=== PATIENT | female | born 1990 | race Hispanic/Latino ===

== ENCOUNTER 2020-06-05 10:27 | Inpatient (IN) | payer BC, OTHER ==
[2020-06-05] MEDS ORDERED: Iopamidol-370 76% 500 ML 1 ML ONE (10:36)
[2020-06-05] MEDS ORDERED: Dexamethasone 10 MG/ML VIAL ONE (11:05)
--- NOTE | 2020-06-05 11:38 | RAD ---
EXAM: Single view of the chest HISTORY: Shortness of breath COMPARISON: None FINDINGS: Single view of the chest shows a normal sized cardiomediastinal silhouette. Multifocal opac ities are seen peripherally in the lung bases. The bones are unremarkable IMPRESSION: Multifocal infiltrates.
[2020-06-05 11:39] LABS: Hemoglobin 12.1 g/dL (12.0-16.0); Mean Corpuscular HGB CONC 33.1 g/dL (32.0-36.0); Mean Corpuscular Hemoglobin 29.1 pg (27.0-31.0); Platelet Count 383 thou/uL (130-400); RBC Distribution Width 12.5 % (11.5-14.5); Red Blood Cell (RBC) Count 4.14 mill/uL (4.20-5.40); White Blood Cell (WBC) Count 11.8 thou/uL (4.8-10.8)
[2020-06-05 11:40] LABS: BHCG - Serum Negative (NEGATIVE); Pregs Control Bar Appear? YES (CONTROL BAR)
[2020-06-05 11:41] LABS: Pregs Control Background? CLEAR/WHITE (CLR/WHITE)
[2020-06-05] MEDS ORDERED: Albuterol 200 PUFF (6.7GM INHALER) ONE (11:42)
[2020-06-05 11:53] LABS: Band 7 % (5-11); Eosinophils 1 % (0-10); Lymphocytes 16 % (21-51); MDiff Complete? YES; Monocytes 2 % (0-10); Myelocyte 1 % (0-0); Neutrophil 72 % (42-75); RBC Morphology Normal; Reactive Lymphocytes 1 % (0-10)
[2020-06-05 11:59] LABS: ALT (SGPT) 56 U/L (8-55); Albumin 3.5 g/dL (3.5-5.0); Alkaline Phosphatase 107 U/L (40-110); BUN (Urea Nitrogen) 19 mg/dL (7.0-18.7); Bilirubin, Total 0.5 mg/dL (0.2-1.2); Calc. Creatinine Clearance 0 mL/min (70-130); Calcium 8.6 mg/dL (7.8-10.44); Carbon Dioxide 24 mmol/L (22-29); Chloride 100 mmol/L (98-107); Estimated GFR-MDRD 73; Glucose 423 mg/dL (70-105); Sodium 132 mmol/L (136-145)
[2020-06-05 12:31] LABS: AST (SGOT) 56 U/L (5-34); Anion Gap 13 mmol/L (10-20); Globulin 3.2 g/dL (2.4-3.5); Potassium 4.8 mmol/L (3.5-5.1); Protein, Total 6.7 g/dL (6.0-8.3)
--- NOTE | 2020-06-05 13:04 | CT ---
CT arteriogram chest with IV contrast and 3-D imaging HISTORY: Cough. Dyspnea. FINDINGS: There is good contrast opacification of the pulmonary arteries and thoracic aorta with bovi ne origin of the great vessels at the aortic arch. Moderate patchy ill-defined areas of peripheral groundglass parenchymal infiltrates are present throu ghout each lung, most pronounced at the dependent portion of each lung and in the lower lobes. No pleural fluid or pneumothorax. No evidence of mediastinal adenopathy. Within the partially visualized upper abdomen, the liver is diffusely hypodense. IMPRESSION : No CT evidence of pulmonary embolus. CT findings of moderate severity COVID pneumonitis. Hepato-steatosis.
[2020-06-05] MEDS ORDERED: Cefepime 2 GM VIAL ONE ×2 (13:46→13:49)
[2020-06-05] MEDS ORDERED: Calcium Carbonate 500 MG ChewTAB PO PRN (13:59)
[2020-06-05] MEDS ORDERED: Ondansetron ODT 4 MG TAB PO PRN (13:59)
[2020-06-05] MEDS ORDERED: Bisacodyl 10 MG SUPP PR PRN (13:59)
[2020-06-05] MEDS ORDERED: Senokot S 8.6-50 MG TAB PO PRN (13:59)
[2020-06-05] MEDS ORDERED: Dextrose 5% in Water 1,000 ML IV PRN (13:59)
[2020-06-05] MEDS ORDERED: Acetaminophen 325 MG TAB PO PRN (13:59)
[2020-06-05] MEDS ORDERED: Dextrose 50% Abboject 50 ML SYRINGE SLOW IVP PRN (13:59)
[2020-06-05] MEDS ORDERED: Ondansetron PF 4 MG/2 ML Vial IVP PRN (13:59)
--- NOTE | 2020-06-05 14:19 | PDOC.HHP ---
Hospitalist HPI - History of Present Illness SOB History of Present Illness: Patient is a 29-year-old female with no past medical history presented to the emergency room with above complaints. Over the last 1 week patient developed cough along with fever generalized weakness fatigue malaise and loss of taste. The cough was productive of thick whitish mucus. Her symptoms progressively got worse. She had a COVID testing done on 30 May at the [facility] that was negative. Her symptoms however continued to worsen. Over the last 3 to 4 days she developed chills along with shortness of breath and loss of appetite. She denies any sick contacts. No recent immobilization travel chest pain palpitations syncope orthopnea leg swelling reported. In the emergency room she was found to be hypoxic with O2 saturation of 86% on room air. Her O2 saturation improved with [address] chest was consistent with moderate to severe COVID pneumonia. Pulmonary embolism was ruled out. She received empiric antibiotics in the emergency room along with dexamethasone. ED Course: VITAL SIGNS WedJun 05, 2020 10:29 OLAMIDE Gao Dannette Pulse: 92, O2 sat: 86 on (Room Air), Time: 06/05/2020 10:29. VITAL SIGNS WedJun 05, 2020 10:36 OLAMIDE Zimmerman Jenifer BP: 130/88, MAP: 102, Pulse: 81, Resp: 26, O2 sat: 87 on (Room Air), Time: 2019 10:36. VITAL SIGNS WedJun 05, 2020 10:37 OLAMIDE Zimmerman Jenifer Resp: 23, O2 sat: 93 on (2L Oxygen), Time: 06/05/2020 10:37. VITAL SIGNS WedJun 05, 2020 10:40 OLAMIDE Zimmerman Jenifer O2 sat: 94 on (4L Oxygen), Time: 06/05/2020 10:40. MEDICATION ADMINISTRATION SUMMARY Drug Name Dose Ordered Route Status Time cefepime injection 2 g IV Piggy Back Ordered 13:39 06/05/2020 *Proventil HFA 2 puff(s) Inhaler-MDI Given 11:50 06/05/2020 sodium chloride 0.9 % intravenous 1 L IV Fluid Infusion Given 11:23 06/05/2020 dexamethasone 10 mg IV Push Given 11:23 06/05/2020 Hospitalist ROS - Review of Systems Cardiovascular: denies: chest pain, palpitations, orthopnea, paroxysmal noc. dyspnea, edema, light headedness, other Gastrointestinal: denies: nausea, vomiting, abdominal pain, diarrhea, constipation, melena, hematochezia, other All other systems reviewed; all pertinent +/- noted in HPI/Subj Hospitalist History - Past Medical History Other Medical History: Reviewed and none - Past Surgical History Other Surgical History: Reviewed and none - Family History Family History: reports: diabetes mellitus, hypertension - Social History Smoking Status: Never smoker Alcohol: reports: None Drugs: reports: none Living Situation: With Family Occupation: Homemaker Activity level: independent ambulation - Exam General Appearance: ill appearing Eye: PERRL, anicteric sclera ENT: normocephalic atraumatic, no oropharyngeal lesions Neck: supple, symmetric, no JVD, no thyromegaly Heart: RRR, no gallops, no rubs, normal peripheral pulses Respiratory: no wheezes, normal chest expansion, normal percussion, rales, rhonchi, tachypneic Gastrointestinal: soft, non-distended, normal bowel sounds, no guarding, no rigidity Extremities: no cyanosis, no clubbing, no edema Skin: normal turgor Neurological: no weakness, no focal deficits Musculoskeletal: normal tone, normal strength Psychiatric: normal affect, A&O x 3 Hospitalist Results - Labs Result Diagrams: 06/05/20 11:15 06/05/20 11:15 Lab results: WBC 11.8 thou/uL (4.8-10.8) H 06/05/20 11:15 Hgb 12.1 g/dL (12.0-16.0) 06/05/20 11:15 Hct 36.5 % (36.0-47.0) 06/05/20 11:15 MCV 88.0 fL (78.0-98.0) 06/05/20 11:15 Plt Count 383 thou/uL (130-400) 06/05/20 11:15 Band Neuts % (Manual) 7 % (5-11) 06/05/20 11:15 Sodium 132 mmol/L (136-145) L 06/05/20 11:15 Potassium 4.8 mmol/L (3.5-5.1) 06/05/20 11:15 Chloride 100 mmol/L (98-107) 06/05/20 11:15 Carbon Dioxide 24 mmol/L (22-29) 06/05/20 11:15 BUN 19 mg/dL (7.0-18.7) H 06/05/20 11:15 Creatinine 0.90 mg/dL (0.6-1.1) 06/05/20 11:15 Glucose 423 mg/dL (70-105) H 06/05/20 11:15 Calcium 8.6 mg/dL (7.8-10.44) 06/05/20 11:15 Total Bilirubin 0.5 mg/dL (0.2-1.2) 06/05/20 11:15 AST 56 U/L (5-34) H 06/05/20 11:15 ALT 56 U/L (8-55) H 06/05/20 11:15 Alkaline Phosphatase 107 U/L (40-110) 06/05/20 11:15 Serum Total Protein 6.7 g/dL (6.0-8.3) 06/05/20 11:15 Albumin 3.5 g/dL (3.5-5.0) 06/05/20 11:15 Laboratory Tests 06/05/20 06/05/20 06/05/20 11:15 11:15 11:15 Lymphocytes % (Manual) 16 L AST 56 H ALT 56 H Serum , Qual Negative Additional comment: Laboratory Tests 06/05/20 11:11 C-Reactive Protein 11.72 H - EKG Interpretation EKG: Sinus rhythm on telemetry monitoring - Radiology Interpretation CT scan - chest Status: image reviewed by me Additional Comment: RADIOLOGY CTA Angio Chest W WO Con Observe DT: WedJun 05, 2020 10:57, CTATHX CT arteriogram chest with IV contrast and 3-D imaging HISTORY: Cough. Dyspnea. FINDINGS: There is good contrast opacification of the pulmonary arteries and thoracic aorta with bovi ne origin of the great vessels at the aortic arch. Moderate patchy ill-defined areas of peripheral groundglass parenchymal infiltrates are present throu ghout each lung, most pronounced at the dependent portion of each lung and in the lower lobes. No pleural fluid or pneumothorax. No evidence of mediastinal adenopathy. Within the partially visualized upper abdomen, the liver is diffusely hypodense. IMPRESSION : No CT evidence of pulmonary embolus. CT findings of moderate severity COVID pneumonitis. Hepato-steatosis. Chest x-ray Status: image reviewed by me Additional Comment: XR Chest 1 View Portable Observe DT: WedJun 05, 2020 10:54, CXRP EXAM: Single view of the chest HISTORY: Shortness of breath COMPARISON: None FINDINGS: Single view of the chest shows a normal sized cardiomediastinal silhouette. Multifocal opac ities are seen peripherally in the lung bases. The bones are unremarkable IMPRESSION: Multifocal infiltrates. Hospitalist H&P A/P - Plan Plan: COVID-19 positive test with Acute Bilateral Pneumonia Acute hypoxic respiratory failure Sepsis due to COVID pneumonia New onset diabetes mellitus type 2 Obesity BMI 34.2 Hepato-steatosis Plan: Admit to COVID unit Check inflammatory markers Vital signs every 4 hours Continue IV dexamethasone Check A1c Isolation - droplet Hold IV fluids Start Remdesivir per protocolI discussed with infectious disease Dr. Vásquez. Consent obtained from the patient. Patient understands that this medicine is approved by FDA under [place] Monitor blood sugars Insulin sliding scale Consult dietitian for diabetic education Add low-dose of glipizide Start metformin [address] Oxygen supplementation Will add albuterol inhalers Add vitamin C and zinc DVT and GI prophylaxis Patient understands the above plan of care Will require 5 to 6 days for stabilization.
[2020-06-05] MEDS ORDERED: Enoxaparin Sodium 40 MG/0.4 ML SYRINGE ONE ×2 (14:26→14:27)
[2020-06-05] MEDS ORDERED: cloNIDine 0.1 MG TAB PO PRN (14:32)
[2020-06-05 14:44] LABS: Hemoglobin A1c 8.5 % (4.0-6.0)
[2020-06-05 15:02] LABS: INR-International Normal Ratio 1.1; PTT 24.7 sec (22.9-36.1)
[2020-06-05 15:22] LABS: SARS-CoV-2 NAA Rapid Test DETECTED (NotDetected)
[2020-06-05] MEDS ORDERED: Acetaminophen 325 MG TAB ONE (16:05)
[2020-06-05] MEDS ORDERED: REMDESIVIR (EUA) 200 MG in Sodium Chloride 0.9% 250 ML 210 ML IV SCH ×2 (17:00→20:45)
[2020-06-05] MEDS: Albuterol 200 PUFF (6.7GM INHALER) INH SCH ×3 (18:10→23:56)
[2020-06-05 18:17] VITALS: BMI 34.2
[2020-06-05] MEDS: glipiZIDE 5 MG TAB PO SCH (18:37)
[2020-06-05] MEDS: Zinc Sulfate 220 MG CAP PO SCH (21:38)
[2020-06-05] MEDS: Famotidine 20 MG TAB PO SCH (21:38)
[2020-06-05] MEDS: Enoxaparin Sodium 40 MG/0.4 ML SYRINGE SC SCH (21:38)
[2020-06-05] MEDS: Insulin Regular 300 UNITS/3 ML VIAL SC PRN (21:58)
[2020-06-06] MEDS: Albuterol 200 PUFF (6.7GM INHALER) INH SCH ×6 (04:06→23:31)
[2020-06-06 05:25] LABS: ALT (SGPT) 51 U/L (8-55); AST (SGOT) 38 U/L (5-34); Albumin 3.6 g/dL (3.5-5.0); Alkaline Phosphatase 99 U/L (40-110); Anion Gap 14 mmol/L (10-20); BUN (Urea Nitrogen) 17 mg/dL (7.0-18.7); Bilirubin, Total 0.4 mg/dL (0.2-1.2); Calc. Creatinine Clearance 134 mL/min (70-130); Calcium 8.5 mg/dL (7.8-10.44); Carbon Dioxide 23 mmol/L (22-29); Chloride 103 mmol/L (98-107); Estimated GFR-MDRD 85; Globulin 3.3 g/dL (2.4-3.5); Glucose 318 mg/dL (70-105); Protein, Total 6.9 g/dL (6.0-8.3); Sodium 136 mmol/L (136-145)
[2020-06-06 05:37] LABS: Hemoglobin 10.8 g/dL (12.0-16.0); Mean Corpuscular HGB CONC 31.4 g/dL (32.0-36.0); Mean Corpuscular Hemoglobin 27.1 pg (27.0-31.0); Mean Corpuscular Volume 86.2 fL (78.0-98.0); Mean Platelet Volume 8.3 fL (7.4-10.4); Platelet Count 428 thou/uL (130-400); RBC Distribution Width 12.6 % (11.5-14.5); Red Blood Cell (RBC) Count 3.99 mill/uL (4.20-5.40); White Blood Cell (WBC) Count 9.4 thou/uL (4.8-10.8)
[2020-06-06 05:38] LABS: Band 7 % (5-11); Lymphocytes 21 % (21-51); MDiff Complete? YES; Monocytes 4 % (0-10); Neutrophil 68 % (42-75); Platelet Morphology Comment Appears Increased
[2020-06-06] MEDS: Insulin Regular 300 UNITS/3 ML VIAL SC PRN ×4 (05:38→20:35)
[2020-06-06] MEDS: glipiZIDE 5 MG TAB PO SCH ×2 (08:12→16:42)
[2020-06-06] MEDS: Ascorbic Acid 500 mg Chewable Tablet PO SCH (08:12)
[2020-06-06] MEDS: Dexamethasone 4 mg/ml Vial SLOW IVP SCH (08:13)
[2020-06-06] MEDS: Enoxaparin Sodium 40 MG/0.4 ML SYRINGE SC SCH ×2 (08:13→20:18)
[2020-06-06] MEDS: Famotidine 20 MG TAB PO SCH ×2 (08:13→20:18)
[2020-06-06] MEDS ORDERED: Cepastat Lozenges 1 LOZ PO PRN (08:43)
[2020-06-06] MEDS ORDERED: Diabetic Tussin 200 MG/10 ML UDCUP PO PRN (08:43)
[2020-06-06] MEDS: Insulin Glargine 15 UNITS in Pre-Filled Syringe 1 EACH SC SCH ×2 (10:08→20:19)
[2020-06-06] MEDS: guaiFENesin ER 600 MG TAB PO SCH ×2 (10:08→20:18)
[2020-06-06] MEDS: REMDESIVIR (EUA) 100 MG in Sodium Chloride 0.9% 250 ML 230 ML IV SCH (16:43)
--- NOTE | 2020-06-06 17:55 | PDOC.HOSPP ---
- Subjective Encounter Date: 06/06/20 Encounter Time: 16:45 Subjective: Patient seen and examined for sepsis due to COVID-19. Requiring O2. Also has some cough productive of thick whitish phlegm. Also complaining of menorrhagia for 2 months. Was scheduled to see CLERICAL CLERK as outpatienthowever got admitted to the hospital. - Objective Vital Signs & Weight: Vital Signs (12 hours) Temp Pulse Resp BP Pulse Ox 06/06/20 17:10 99.2 F 63 22 H 115/67 100 06/06/20 12:10 98.3 F 75 20 117/69 94 L 06/06/20 08:00 98.3 F 85 24 H 113/66 98 Weight Weight 181 lb 3 oz I&O: 06/05/20 06/06/20 06/07/20 06:59 06:59 06:59 Intake Total 300 480 Output Total 450 800 Balance -150 -320 Result Diagrams: 06/07/20 05:29 06/07/20 05:29 Additional Labs: Accuchecks 06/06/20 06/06/20 06/05/20 11:48 05:40 21:56 POC Glucose 338 H 301 H 358 H EKG Reviewed by me: Yes (Sinus rhythm) Hospitalist ROS - Review of Systems Respiratory: denies: cough, dry, shortness of breath, hemoptysis, SOB with excertion, pleuritic pain, sputum, wheezing, other Cardiovascular: denies: chest pain, palpitations, orthopnea, paroxysmal noc. dyspnea, edema, light headedness, other - Medication Medications: Active Medications Generic Name Dose Route Start Last Admin Trade Name Kalebq PRN Reason Stop Dose Admin Albuterol Sulfate 2 puff 06/05/20 14:30 06/06/20 17:03 Proventil Hfa INH 2 puff [id number] COURTNEY Administration Ascorbic Acid 1,000 mg 06/06/20 09:00 06/06/20 08:12 Vitamin C PO 1,000 mg DAILY COURTNEY Administration Dexamethasone 6 mg 06/06/20 09:00 06/06/20 08:13 Decadron SLOW IVP 6 mg DAILY COURTNEY Administration Enoxaparin Sodium 40 mg 06/05/20 21:00 06/06/20 08:13 Lovenox SC 40 mg 0900,2100 COURTNEY Administration Famotidine 20 mg 06/05/20 21:00 06/06/20 08:13 Pepcid PO 20 mg BID COURTNEY Administration Glipizide 5 mg 06/05/20 16:30 06/06/20 16:42 Glucotrol PO 5 mg BID-AC COURTNEY Administration Guaifenesin 600 mg 06/06/20 09:00 06/06/20 10:08 Mucinex PO 600 mg Q12HR COURTNEY Administration REMDESIVIR (EUA) 100 mg/ 230 mls @ 230 mls/hr 06/06/20 17:00 06/06/20 16:43 Sodium Chloride IV 06/09/20 17:59 230 mls 1700 OCURTNEY Administration Insulin Glargine 15 units/ 0.15 mls @ 0 mls/hr 06/06/20 09:00 06/06/20 10:08 Miscellaneous Medication SC 0.15 mls QAM COURTNEY Administration Insulin Human Regular 0 units 06/05/20 13:59 06/06/20 16:46 Humulin R SC 10 unit .MODERATE SLIDING SC PRN Administration Moderate Correctional Scale Insulin Human Regular 0 units 06/05/20 13:59 06/05/20 21:58 Humulin R SC 5 unit .BEDTIME SLIDING SC PRN Administration Bedtime Correctional Scale Sodium Chloride 10 ml 06/05/20 13:59 06/06/20 16:43 Flush - Normal Saline IVF 10 ml PRN PRN Administration Saline Flush Zinc Sulfate 220 mg 06/05/20 21:00 06/05/20 21:38 Zinc Sulfate PO 220 mg HS COURTNEY Administration - Exam General Appearance: ill appearing Heart: RRR, no gallops Respiratory: no wheezes, no ronchi Gastrointestinal: soft, non-distended Hosp A/P - Plan DVT proph w/lovenox, DVT proph w/SCDs COVID-19 positive test with Acute Bilateral Pneumonia Acute hypoxic respiratory failure Sepsis due to COVID pneumonia New onset diabetes mellitus type 2 Obesity BMI 34.2 Hepato-steatosis Menorrhagia Plan: 06/06 Continue IV dexamethasone with Remdesivir Continue O2 supplementation Add Lantus due to uncontrolled blood sugar Consult CLERICAL CLERK per patient request due to persistent menorrhagia for last 2 months. test was negative Daily labs with inflammatory markers monitoring every 48 hours. 06/05 Admit to COVID unit Check inflammatory markers Vital signs every 4 hours Continue IV dexamethasone Check A1c Isolation - droplet Hold IV fluids Start Remdesivir per protocolI discussed with infectious disease Dr. Vásquez. Consent obtained from the patient. Patient understands that this medicine is approved by FDA under [place] Monitor blood sugars Insulin sliding scale Consult dietitian for diabetic education Add low-dose of glipizide Start metformin [address] Oxygen supplementation Will add albuterol inhalers Add vitamin C and zinc DVT and GI prophylaxis Patient understands the above plan of care Will require 5 to 6 days for stabilization.
[2020-06-06] MEDS: Zinc Sulfate 220 MG CAP PO SCH (20:18)
[2020-06-07] MEDS: Albuterol 200 PUFF (6.7GM INHALER) INH SCH ×6 (03:22→22:00)
[2020-06-07 05:41] LABS: #Basophils 0.1 thou/uL (0.0-0.2); #Eosinphils 0.1 thou/uL (0.0-0.7); #Monocytes 0.7 thou/uL (0.11-0.59); #Neutrophils 5.6 thou/uL (1.40-6.50); %Basophils 1.4 % (0.0-1.0); %Eosinophils 0.9 % (0.0-10.0); %Monocytes 7.8 % (0.0-10.0); Hemoglobin 11.1 g/dL (12.0-16.0); Mean Corpuscular HGB CONC 32.1 g/dL (32.0-36.0); Mean Corpuscular Hemoglobin 28.1 pg (27.0-31.0); Mean Corpuscular Volume 87.7 fL (78.0-98.0); Platelet Count 431 thou/uL (130-400); RBC Distribution Width 12.8 % (11.5-14.5); Red Blood Cell (RBC) Count 3.96 mill/uL (4.20-5.40); White Blood Cell (WBC) Count 9.6 thou/uL (4.8-10.8)
[2020-06-07 06:02] LABS: ALT (SGPT) 63 U/L (8-55); AST (SGOT) 57 U/L (5-34); Albumin 3.5 g/dL (3.5-5.0); Alkaline Phosphatase 95 U/L (40-110); Anion Gap 12 mmol/L (10-20); BUN (Urea Nitrogen) 19 mg/dL (7.0-18.7); Bilirubin, Total 0.4 mg/dL (0.2-1.2); CRP (Inflammatory) 1.94 mg/dL (= or < 0.5); Calc. Creatinine Clearance 137 mL/min (70-130); Calcium 8.5 mg/dL (7.8-10.44); Carbon Dioxide 25 mmol/L (22-29); Chloride 105 mmol/L (98-107); Estimated GFR-MDRD 87; Globulin 3.2 g/dL (2.4-3.5); Glucose 148 mg/dL (70-105); Potassium 3.5 mmol/L (3.5-5.1); Protein, Total 6.7 g/dL (6.0-8.3); Sodium 138 mmol/L (136-145)
[2020-06-07] MEDS: Ascorbic Acid 500 mg Chewable Tablet PO SCH (09:42)
[2020-06-07] MEDS: guaiFENesin ER 600 MG TAB PO SCH ×2 (09:43→20:28)
[2020-06-07] MEDS: Enoxaparin Sodium 40 MG/0.4 ML SYRINGE SC SCH (09:43)
[2020-06-07] MEDS: Famotidine 20 MG TAB PO SCH ×2 (09:43→20:28)
[2020-06-07] MEDS: Dexamethasone 4 mg/ml Vial SLOW IVP SCH (09:43)
[2020-06-07] MEDS: glipiZIDE 5 MG TAB PO SCH ×2 (09:43→17:58)
[2020-06-07] MEDS: Insulin Glargine 15 UNITS in Pre-Filled Syringe 1 EACH SC SCH ×2 (09:44→20:29)
[2020-06-07] MEDS: Insulin Regular 300 UNITS/3 ML VIAL SC PRN ×2 (13:44→18:00)
[2020-06-07] MEDS: REMDESIVIR (EUA) 100 MG in Sodium Chloride 0.9% 250 ML 230 ML IV SCH (17:58)
--- NOTE | 2020-06-07 19:42 | PDOC.HOSPP ---
- Subjective Encounter Date: 06/07/20 Encounter Time: 19:41 Subjective: Patient seen and examined for respiratory failure due to COVID-19. Symptomatically she feels much better. Denies any chest pain or palpitations. - Objective Vital Signs & Weight: Vital Signs (12 hours) Temp Pulse Resp BP Pulse Ox 06/07/20 18:08 99.3 F 77 20 113/65 97 06/07/20 12:00 98.9 F 70 20 123/70 97 06/07/20 08:39 98.5 F 81 20 100/58 L 92 L Weight Weight 181 lb 3 oz I&O: 06/06/20 06/07/20 06/08/20 06:59 06:59 06:59 Intake Total 300 1240 Output Total 450 1200 Balance -150 40 Result Diagrams: 06/07/20 05:29 06/07/20 05:29 Additional Labs: Accuchecks 06/07/20 06/07/20 06/06/20 12:48 06:08 20:31 POC Glucose 247 H 142 H 333 H Microbiology 06/05/20 14:22 Venous blood - Right Hand Blood Culture - Preliminary NO GROWTH AT 48 HOURS 06/05/20 14:22 Venous blood - Left Hand Blood Culture - Preliminary NO GROWTH AT 48 HOURS Laboratory Tests 06/05/20 06/05/20 06/05/20 11:11 11:11 11:11 D-Dimer Hemoglobin A1c 8.5 H Ferritin 243.83 AST ALT C-Reactive Protein 11.72 H SARS-CoV-2 Rap RNA(RT-PCR) 06/05/20 06/07/20 06/07/20 11:35 05:29 05:29 D-Dimer Hemoglobin A1c Ferritin 177.69 AST 57 H ALT 63 H C-Reactive Protein 1.94 H SARS-CoV-2 Rap RNA(RT-PCR) DETECTED A* 06/07/20 05:30 D-Dimer Less than 0.27 L Hemoglobin A1c Ferritin AST ALT C-Reactive Protein SARS-CoV-2 Rap RNA(RT-PCR) EKG Reviewed by me: Yes (Sinus rhythm on telemetry monitoring) Hospitalist ROS - Review of Systems Cardiovascular: denies: chest pain, palpitations, orthopnea, paroxysmal noc. dyspnea, edema, light headedness, other Gastrointestinal: denies: nausea, vomiting, abdominal pain, diarrhea, constipation, melena, hematochezia, other - Medication Medications: Active Medications Generic Name Dose Route Start Last Admin Trade Name Freq PRN Reason Stop Dose Admin Albuterol Sulfate 2 puff 06/05/20 14:30 06/07/20 18:57 Proventil Hfa INH 2 puff [id number] COURTNEY Administration Ascorbic Acid 1,000 mg 06/06/20 09:00 06/07/20 09:42 Vitamin C PO 1,000 mg DAILY COURTNEY Administration Dexamethasone 6 mg 06/06/20 09:00 06/07/20 09:43 Decadron SLOW IVP 6 mg DAILY COURTNEY Administration Famotidine 20 mg 06/05/20 21:00 06/07/20 09:43 Pepcid PO 20 mg BID COURTNEY Administration Glipizide 5 mg 06/05/20 16:30 06/07/20 17:58 Glucotrol PO 5 mg BID-AC COURTNEY Administration Guaifenesin 600 mg 06/06/20 09:00 06/07/20 09:43 Mucinex PO 600 mg Q12HR COURTNEY Administration REMDESIVIR (EUA) 100 mg/ 230 mls @ 230 mls/hr 06/06/20 17:00 06/07/20 17:58 Sodium Chloride IV 06/09/20 17:59 230 mls 1700 COURTNEY Administration Insulin Glargine 15 units/ 0.15 mls @ 0 mls/hr 06/06/20 09:00 06/07/20 09:44 Miscellaneous Medication SC 0.15 mls QAM COURTNEY Administration Insulin Glargine 15 units/ 0.15 mls @ 0 mls/hr 06/06/20 21:00 06/06/20 20:19 Miscellaneous Medication SC 0.15 mls HS COURTNEY Administration Insulin Human Regular 0 units 06/05/20 13:59 06/07/20 18:00 Humulin R SC 8 unit .MODERATE SLIDING SC PRN Administration Moderate Correctional Scale Insulin Human Regular 0 units 06/05/20 13:59 06/06/20 20:35 Humulin R SC 4 unit .BEDTIME SLIDING SC PRN Administration Bedtime Correctional Scale Sodium Chloride 10 ml 06/05/20 13:59 06/06/20 20:18 Flush - Normal Saline IVF 10 ml PRN PRN Administration Saline Flush Zinc Sulfate 220 mg 06/05/20 21:00 06/06/20 20:18 Zinc Sulfate PO 220 mg HS COURTNEY Administration - Exam General Appearance: NAD Heart: RRR, no gallops Respiratory: no wheezes, normal chest expansion, rhonchi Gastrointestinal: soft, non-tender, normal bowel sounds Extremities: no cyanosis, no clubbing Hosp A/P - Plan DVT proph w/lovenox COVID-19 positive test with Acute Bilateral Pneumonia Acute hypoxic respiratory failure Sepsis due to COVID pneumonia New onset diabetes mellitus type 2 Obesity BMI 34.2 Hepato-steatosis Menorrhagia Plan: 06/07 Will continue IV dexamethasone with Remdesivir. Reduce Lovenox dose to 40 mg daily due to menorrhagia. I discussed with YARN WINDER who recommended will avoid oral contraceptives due to high risk of thromboembolism in the setting of COVID- 19. Continue Lantus with insulin sliding scale. Continue to wean oxygen as tolerated. 06/06 Continue IV dexamethasone with Remdesivir Continue O2 supplementation Add Lantus due to uncontrolled blood sugar Consult YARN WINDER per patient request due to persistent menorrhagia for last 2 months. test was negative Daily labs with inflammatory markers monitoring every 48 hours. 06/05 Admit to COVID unit Check inflammatory markers Vital signs every 4 hours Continue IV dexamethasone Check A1c Isolation - droplet Hold IV fluids Start Remdesivir per protocolI discussed with infectious disease Dr. Vásquez. Consent obtained from the patient. Patient understands that this medicine is approved by FDA under [place] Monitor blood sugars Insulin sliding scale Consult dietitian for diabetic education Add low-dose of glipizide Start metformin [address] Oxygen supplementation Will add albuterol inhalers Add vitamin C and zinc DVT and GI prophylaxis Patient understands the above plan of care Will require 5 to 6 days for stabilization.
[2020-06-07] MEDS: Zinc Sulfate 220 MG CAP PO SCH (20:29)
[2020-06-08] MEDS: Albuterol 200 PUFF (6.7GM INHALER) INH SCH ×6 (02:44→22:31)
[2020-06-08 05:24] LABS: #Basophils 0.1 thou/uL (0.0-0.2); #Eosinphils 0.1 thou/uL (0.0-0.7); #Lymphocytes 2.9 thou/uL (1.20-3.40); #Monocytes 0.8 thou/uL (0.11-0.59); #Neutrophils 6.2 thou/uL (1.40-6.50); %Eosinophils 0.6 % (0.0-10.0); %Lymphocytes 28.8 % (21.0-51.0); %Monocytes 7.6 % (0.0-10.0); Hemoglobin 10.9 g/dL (12.0-16.0); Mean Corpuscular HGB CONC 31.7 g/dL (32.0-36.0); Mean Corpuscular Hemoglobin 27.6 pg (27.0-31.0); Mean Platelet Volume 8.4 fL (7.4-10.4); Platelet Count 422 thou/uL (130-400); RBC Distribution Width 12.9 % (11.5-14.5); Red Blood Cell (RBC) Count 3.94 mill/uL (4.20-5.40)
[2020-06-08 05:48] LABS: ALT (SGPT) 70 U/L (8-55); AST (SGOT) 43 U/L (5-34); Albumin 3.6 g/dL (3.5-5.0); Alkaline Phosphatase 93 U/L (40-110); Anion Gap 13 mmol/L (10-20); BUN (Urea Nitrogen) 15 mg/dL (7.0-18.7); Bilirubin, Total 0.5 mg/dL (0.2-1.2); Calc. Creatinine Clearance 147 mL/min (70-130); Calcium 8.6 mg/dL (7.8-10.44); Carbon Dioxide 25 mmol/L (22-29); Chloride 102 mmol/L (98-107); Estimated GFR-MDRD Greater than 90; Globulin 3.1 g/dL (2.4-3.5); Glucose 147 mg/dL (70-105); Potassium 3.6 mmol/L (3.5-5.1); Protein, Total 6.7 g/dL (6.0-8.3); Sodium 136 mmol/L (136-145)
[2020-06-08] MEDS: Insulin Glargine 15 UNITS in Pre-Filled Syringe 1 EACH SC SCH ×2 (09:06→20:53)
[2020-06-08] MEDS: Enoxaparin Sodium 40 MG/0.4 ML SYRINGE SC SCH (09:07)
[2020-06-08] MEDS: guaiFENesin ER 600 MG TAB PO SCH ×2 (09:07→20:54)
[2020-06-08] MEDS: glipiZIDE 5 MG TAB PO SCH ×2 (09:07→18:27)
[2020-06-08] MEDS: Famotidine 20 MG TAB PO SCH ×2 (09:08→20:54)
[2020-06-08] MEDS: Ascorbic Acid 500 mg Chewable Tablet PO SCH (09:08)
[2020-06-08] MEDS: Dexamethasone 4 mg/ml Vial SLOW IVP SCH (09:08)
--- NOTE | 2020-06-08 15:05 | PDOC.HOSPP ---
- Subjective Encounter Date: 06/08/20 Encounter Time: 11:15 Subjective: Patient seen and examined for respiratory failure due to COVID-19 pneumonia. Continues to have mild cough with some production. No significant change in her other symptoms. - Objective Vital Signs & Weight: Vital Signs (12 hours) Temp Pulse Resp BP Pulse Ox 06/08/20 12:54 96 06/08/20 12:00 98.4 F 73 20 111/67 96 06/08/20 08:00 99.1 F 82 20 106/79 91 L Weight Weight 181 lb 3 oz I&O: 06/07/20 06/08/20 06/09/20 06:59 06:59 06:59 Intake Total 1240 420 Output Total 1200 500 300 Balance 40 -80 -300 Result Diagrams: 06/08/20 05:01 06/08/20 05:01 Additional Labs: Accuchecks 06/08/20 06/07/20 06/07/20 12:21 20:37 18:07 POC Glucose 268 H 289 H 317 H EKG Reviewed by me: Yes (Sinus rhythm on telemetry monitoring) Hospitalist ROS - Review of Systems Cardiovascular: denies: chest pain, palpitations, orthopnea, paroxysmal noc. dyspnea, edema, light headedness, other Gastrointestinal: denies: nausea, vomiting, abdominal pain, diarrhea, constipation, melena, hematochezia, other - Medication Medications: Active Medications Generic Name Dose Route Start Last Admin Trade Name Freq PRN Reason Stop Dose Admin Albuterol Sulfate 2 puff 06/05/20 14:30 06/08/20 10:30 Proventil Hfa INH 2 puff [id number] COURTNEY Administration Ascorbic Acid 1,000 mg 06/06/20 09:00 06/08/20 09:08 Vitamin C PO 1,000 mg DAILY COURTNEY Administration Dexamethasone 6 mg 06/06/20 09:00 06/08/20 09:08 Decadron SLOW IVP 6 mg DAILY COURTNEY Administration Enoxaparin Sodium 40 mg 06/08/20 09:00 06/08/20 09:07 Lovenox SC 40 mg 0900 COURTNEY Administration Famotidine 20 mg 06/05/20 21:00 06/08/20 09:08 Pepcid PO 20 mg BID COURTNEY Administration Glipizide 5 mg 06/05/20 16:30 06/08/20 09:07 Glucotrol PO 5 mg BID-AC COURTNEY Administration Guaifenesin 600 mg 06/06/20 09:00 06/08/20 09:07 Mucinex PO 600 mg Q12HR COURTNEY Administration REMDESIVIR (EUA) 100 mg/ 230 mls @ 230 mls/hr 06/06/20 17:00 06/07/20 17:58 Sodium Chloride IV 06/09/20 17:59 230 mls 1700 COURTNEY Administration Insulin Glargine 15 units/ 0.15 mls @ 0 mls/hr 06/06/20 21:00 06/07/20 20:29 Miscellaneous Medication SC 0.15 mls HS COURTNEY Administration Insulin Human Regular 0 units 06/05/20 13:59 06/07/20 18:00 Humulin R SC 8 unit .MODERATE SLIDING SC PRN Administration Moderate Correctional Scale Insulin Human Regular 0 units 06/05/20 13:59 06/06/20 20:35 Humulin R SC 4 unit .BEDTIME SLIDING SC PRN Administration Bedtime Correctional Scale Sodium Chloride 10 ml 06/05/20 13:59 06/08/20 09:08 Flush - Normal Saline IVF 10 ml PRN PRN Administration Saline Flush Zinc Sulfate 220 mg 06/05/20 21:00 06/07/20 20:29 Zinc Sulfate PO 220 mg HS COURTNEY Administration - Exam General Appearance: NAD Neck: supple, no JVD Heart: no gallops, no rubs Respiratory: no wheezes, rhonchi Gastrointestinal: soft, non-distended Extremities: no cyanosis, no clubbing Hosp A/P - Plan DVT proph w/lovenox, DVT proph w/SCDs COVID-19 positive test with Acute Bilateral Pneumonia Acute hypoxic respiratory failure Sepsis due to COVID pneumonia New onset diabetes mellitus type 2 Obesity BMI 34.2 Hepato-steatosis Menorrhagia Plan: 06/08 Continue IV Remdesivir with dexamethasone. Will increase a.m. Lantus to 20 units daily. Continue 15 units Lantus nightly. Add low-dose metformin. Recheck labs in a.m. including inflammatory markers. Continue all other medications. 06/07 Will continue IV dexamethasone with Remdesivir. Reduce Lovenox dose to 40 mg daily due to menorrhagia. I discussed with RN CASE MANAGER who recommended will avoid oral contraceptives due to high risk of thromboembolism in the setting of COVID- 19. Continue Lantus with insulin sliding scale. Continue to wean oxygen as tolerated. 06/06 Continue IV dexamethasone with Remdesivir Continue O2 supplementation Add Lantus due to uncontrolled blood sugar Consult RN CASE MANAGER per patient request due to persistent menorrhagia for last 2 months. test was negative Daily labs with inflammatory markers monitoring every 48 hours. 06/05 Admit to COVID unit Check inflammatory markers Vital signs every 4 hours Continue IV dexamethasone Check A1c Isolation - droplet Hold IV fluids Start Remdesivir per protocolI discussed with infectious disease Dr. Vásquez. Consent obtained from the patient. Patient understands that this medicine is approved by FDA under [place] Monitor blood sugars Insulin sliding scale Consult dietitian for diabetic education Add low-dose of glipizide Start metformin [address] Oxygen supplementation Will add albuterol inhalers Add vitamin C and zinc DVT and GI prophylaxis Patient understands the above plan of care Will require 5 to 6 days for stabilization.
[2020-06-08] MEDS: REMDESIVIR (EUA) 100 MG in Sodium Chloride 0.9% 250 ML 230 ML IV SCH (18:27)
[2020-06-08] MEDS: metFORMIN 500 MG TAB PO SCH (18:27)
[2020-06-08] MEDS: Insulin Regular 300 UNITS/3 ML VIAL SC PRN (18:32)
[2020-06-08] MEDS: Zinc Sulfate 220 MG CAP PO SCH (20:53)
[2020-06-09] MEDS: Albuterol 200 PUFF (6.7GM INHALER) INH SCH ×6 (02:50→22:30)
[2020-06-09 05:39] LABS: #Eosinphils 0.1 thou/uL (0.0-0.7); #Lymphocytes 3.3 thou/uL (1.20-3.40); #Monocytes 0.8 thou/uL (0.11-0.59); #Neutrophils 7.3 thou/uL (1.40-6.50); %Basophils 0.2 % (0.0-1.0); %Eosinophils 0.6 % (0.0-10.0); %Lymphocytes 28.7 % (21.0-51.0); %Monocytes 6.7 % (0.0-10.0); %Neutrophils 63.8 % (42.0-75.0); Hemoglobin 10.9 g/dL (12.0-16.0); Mean Corpuscular HGB CONC 31.5 g/dL (32.0-36.0); Mean Corpuscular Hemoglobin 27.3 pg (27.0-31.0); Mean Corpuscular Volume 86.5 fL (78.0-98.0); Mean Platelet Volume 8.4 fL (7.4-10.4); Platelet Count 405 thou/uL (130-400); Red Blood Cell (RBC) Count 4.02 mill/uL (4.20-5.40); White Blood Cell (WBC) Count 11.4 thou/uL (4.8-10.8)
[2020-06-09 06:01] LABS: ALT (SGPT) 78 U/L (8-55); AST (SGOT) 46 U/L (5-34); Albumin 3.5 g/dL (3.5-5.0); Alkaline Phosphatase 94 U/L (40-110); Anion Gap 12 mmol/L (10-20); BUN (Urea Nitrogen) 15 mg/dL (7.0-18.7); Bilirubin, Total 0.6 mg/dL (0.2-1.2); CRP (Inflammatory) 1.42 mg/dL (= or < 0.5); Calc. Creatinine Clearance 158 mL/min (70-130); Calcium 8.4 mg/dL (7.8-10.44); Carbon Dioxide 25 mmol/L (22-29); Chloride 104 mmol/L (98-107); Estimated GFR-MDRD Greater than 90; Glucose 120 mg/dL (70-105); Potassium 3.7 mmol/L (3.5-5.1); Protein, Total 6.5 g/dL (6.0-8.3); Sodium 137 mmol/L (136-145)
[2020-06-09] MEDS: Insulin Glargine 20 UNITS in Pre-Filled Syringe 1 EACH SC SCH (08:23)
[2020-06-09] MEDS: Ascorbic Acid 500 mg Chewable Tablet PO SCH (08:25)
[2020-06-09] MEDS: glipiZIDE 5 MG TAB PO SCH ×2 (08:25→17:32)
[2020-06-09] MEDS: metFORMIN 500 MG TAB PO SCH ×2 (08:25→17:32)
[2020-06-09] MEDS: Famotidine 20 MG TAB PO SCH ×2 (08:26→21:12)
[2020-06-09] MEDS: Enoxaparin Sodium 40 MG/0.4 ML SYRINGE SC SCH (08:26)
[2020-06-09] MEDS: guaiFENesin ER 600 MG TAB PO SCH ×2 (08:26→21:12)
[2020-06-09] MEDS: Dexamethasone 4 mg/ml Vial SLOW IVP SCH (08:26)
[2020-06-09] MEDS: REMDESIVIR (EUA) 100 MG in Sodium Chloride 0.9% 250 ML 230 ML IV SCH (17:32)
[2020-06-09] MEDS: Insulin Regular 300 UNITS/3 ML VIAL SC PRN (17:34)
--- NOTE | 2020-06-09 18:46 | PDOC.HOSPP ---
- Subjective Encounter Date: 06/09/20 Encounter Time: 17:45 Subjective: Patient seen and examined for respiratory failure due to COVID-19. No new complaints. Some shortness of breath on exertion. - Objective Vital Signs & Weight: Vital Signs (12 hours) Temp Pulse Resp BP BP Pulse Ox 06/09/20 15:24 98.5 F 80 16 114/68 96 06/09/20 11:20 99.1 F 78 18 107/64 98 06/09/20 08:45 98.3 F 81 19 115/65 96 Weight Weight 181 lb 3 oz I&O: 06/08/20 06/09/20 06/10/20 06:59 06:59 06:59 Intake Total 420 890 Output Total 500 1100 400 Balance -80 -1100 490 Result Diagrams: 06/09/20 05:30 06/09/20 05:30 Additional Labs: Accuchecks 06/09/20 06/09/20 06/08/20 17:47 11:03 21:05 POC Glucose 217 H 239 H 290 H 06/08/20 18:36 POC Glucose 283 H Laboratory Tests 06/09/20 06/09/20 06/09/20 05:30 05:30 05:30 D-Dimer Less than 0.27 L Ferritin 117.28 C-Reactive Protein 1.42 H EKG Reviewed by me: Yes (Sinus rhythm on telemetry) Hospitalist ROS - Review of Systems Respiratory: denies: cough, dry, shortness of breath, hemoptysis, SOB with excertion, pleuritic pain, sputum, wheezing, other Cardiovascular: denies: chest pain, palpitations, orthopnea, paroxysmal noc. dyspnea, edema, light headedness, other - Medication Medications: Active Medications Generic Name Dose Route Start Last Admin Trade Name Freq PRN Reason Stop Dose Admin Albuterol Sulfate 2 puff 06/05/20 14:30 06/09/20 17:33 Proventil Hfa INH 2 puff [id number] COURTNEY Administration Ascorbic Acid 1,000 mg 06/06/20 09:00 06/09/20 08:25 Vitamin C PO 1,000 mg DAILY COURTNEY Administration Dexamethasone 6 mg 06/06/20 09:00 06/09/20 08:26 Decadron SLOW IVP 6 mg DAILY COURTNEY Administration Enoxaparin Sodium 40 mg 06/08/20 09:00 06/09/20 08:26 Lovenox SC 40 mg 0900 COURTNEY Administration Famotidine 20 mg 06/05/20 21:00 06/09/20 08:26 Pepcid PO 20 mg BID COURTNEY Administration Glipizide 5 mg 06/05/20 16:30 06/09/20 17:32 Glucotrol PO 5 mg BID-AC COURTNEY Administration Guaifenesin 600 mg 06/06/20 09:00 06/09/20 08:26 Mucinex PO 600 mg Q12HR COURTNEY Administration Insulin Glargine 15 units/ 0.15 mls @ 0 mls/hr 06/06/20 21:00 06/08/20 20:53 Miscellaneous Medication SC 0.15 mls HS COURTNEY Administration Insulin Glargine 20 units/ 0.2 mls @ 0 mls/hr 06/09/20 09:00 06/09/20 08:23 Miscellaneous Medication SC 0.2 mls QAM COURTNEY Administration Insulin Human Regular 0 units 06/05/20 13:59 06/09/20 17:34 Humulin R SC 4 unit .MODERATE SLIDING SC PRN Administration Moderate Correctional Scale Insulin Human Regular 0 units 06/05/20 13:59 06/06/20 20:35 Humulin R SC 4 unit .BEDTIME SLIDING SC PRN Administration Bedtime Correctional Scale Metformin HCl 500 mg 06/08/20 17:00 06/09/20 17:32 Glucophage PO 500 mg BID-WM COURTNEY Administration Sodium Chloride 10 ml 06/05/20 13:59 06/08/20 20:53 Flush - Normal Saline IVF 10 ml PRN PRN Administration Saline Flush Zinc Sulfate 220 mg 06/05/20 21:00 06/08/20 20:53 Zinc Sulfate PO 220 mg HS COURTNEY Administration - Exam General Appearance: NAD Heart: RRR, no gallops Respiratory: rales, rhonchi Gastrointestinal: non-tender, non-distended, normal bowel sounds Extremities: no cyanosis, no clubbing Neurological: no new deficit Hosp A/P - Plan COVID-19 positive test with Acute Bilateral Pneumonia Acute hypoxic respiratory failure Sepsis due to COVID pneumonia New onset diabetes mellitus type 2 Obesity BMI 34.2 Hepato-steatosis Menorrhagia Plan: 06/09 Continue Decadron. Last dose of IV Remdesivir today. Continue current dose of Lantus with metformin. Patient was counseled on diabetes as well as insulin self injection. Recheck labs in a.m. Home O2 assessment in a.m. Patient will benefit from home oxygen due to COVID-19 pneumonia. Discharge in a.m. if stable after home oxygen set. Continue other medications. 06/08 Continue IV Remdesivir with dexamethasone. Will increase a.m. Lantus to 20 units daily. Continue 15 units Lantus nightly. Add low-dose metformin. Recheck labs in a.m. including inflammatory markers. Continue all other medications. 06/07 Will continue IV dexamethasone with Remdesivir. Reduce Lovenox dose to 40 mg daily due to menorrhagia. I discussed with READING AIDE who recommended will avoid oral contraceptives due to high risk of thromboembolism in the setting of COVID- 19. Continue Lantus with insulin sliding scale. Continue to wean oxygen as tolerated. 06/06 Continue IV dexamethasone with Remdesivir Continue O2 supplementation Add Lantus due to uncontrolled blood sugar Consult READING AIDE per patient request due to persistent menorrhagia for last 2 months. test was negative Daily labs with inflammatory markers monitoring every 48 hours. 06/05 Admit to COVID unit Check inflammatory markers Vital signs every 4 hours Continue IV dexamethasone Check A1c Isolation - droplet Hold IV fluids Start Remdesivir per protocolI discussed with infectious disease Dr. Vásquez. Consent obtained from the patient. Patient understands that this medicine is approved by FDA under [place] Monitor blood sugars Insulin sliding scale Consult dietitian for diabetic education Add low-dose of glipizide Start metformin [address] Oxygen supplementation Will add albuterol inhalers Add vitamin C and zinc DVT and GI prophylaxis Patient understands the above plan of care Will require 5 to 6 days for stabilization.
[2020-06-09] MEDS: Zinc Sulfate 220 MG CAP PO SCH (21:11)
[2020-06-09] MEDS: Insulin Glargine 15 UNITS in Pre-Filled Syringe 1 EACH SC SCH (21:12)
[2020-06-10] MEDS: Albuterol 200 PUFF (6.7GM INHALER) INH SCH ×4 (02:30→17:17)
[2020-06-10 06:48] LABS: ALT (SGPT) 80 U/L (8-55); AST (SGOT) 43 U/L (5-34); Albumin 3.5 g/dL (3.5-5.0); Alkaline Phosphatase 90 U/L (40-110); Anion Gap 15 mmol/L (10-20); BUN (Urea Nitrogen) 15 mg/dL (7.0-18.7); Bilirubin, Total 0.6 mg/dL (0.2-1.2); Calc. Creatinine Clearance 153 mL/min (70-130); Calcium 8.5 mg/dL (7.8-10.44); Carbon Dioxide 23 mmol/L (22-29); Chloride 103 mmol/L (98-107); Estimated GFR-MDRD Greater than 90; Glucose 98 mg/dL (70-105); Potassium 3.8 mmol/L (3.5-5.1); Protein, Total 6.5 g/dL (6.0-8.3); Sodium 137 mmol/L (136-145)
[2020-06-10 08:40] LABS: Band 3 % (5-11); Eosinophils 1 % (0-10); Hemoglobin 11.2 g/dL (12.0-16.0); Lymphocytes 26 % (21-51); MDiff Complete? YES; Mean Corpuscular HGB CONC 32.8 g/dL (32.0-36.0); Mean Corpuscular Hemoglobin 28.9 pg (27.0-31.0); Mean Corpuscular Volume 88.1 fL (78.0-98.0); Mean Platelet Volume 8.6 fL (7.4-10.4); Monocytes 6 % (0-10); Neutrophil 64 % (42-75); Platelet Count 417 thou/uL (130-400); Platelet Morphology Comment Appears Increased; Polychromasia SLIGHT = 2-3 cells (100X) (0-2/hpf); RBC Distribution Width 13.6 % (11.5-14.5); Red Blood Cell (RBC) Count 3.89 mill/uL (4.20-5.40); White Blood Cell (WBC) Count 11.6 thou/uL (4.8-10.8)
[2020-06-10] MEDS: Insulin Glargine 20 UNITS in Pre-Filled Syringe 1 EACH SC SCH (09:02)
[2020-06-10] MEDS: Dexamethasone 4 mg/ml Vial SLOW IVP SCH (09:03)
[2020-06-10] MEDS: Enoxaparin Sodium 40 MG/0.4 ML SYRINGE SC SCH (09:03)
[2020-06-10] MEDS: glipiZIDE 5 MG TAB PO SCH ×2 (09:03→17:16)
[2020-06-10] MEDS: metFORMIN 500 MG TAB PO SCH ×2 (09:03→17:17)
[2020-06-10] MEDS: Ascorbic Acid 500 mg Chewable Tablet PO SCH (09:03)
[2020-06-10] MEDS: Famotidine 20 MG TAB PO SCH (09:03)
[2020-06-10] MEDS: guaiFENesin ER 600 MG TAB PO SCH (09:04)
[2020-06-10 12:12] VITALS: BP 116/71; TEMP 98.9
--- NOTE | 2020-06-10 18:58 | DIS ---
DATE OF ADMISSION: 06/05/2020 DATE OF DISCHARGE: 06/10/2020 DISCHARGE DISPOSITION: Home. FOLLOWUP: With Dr. Royce Farmer at [facility]. DISCHARGE MEDICATIONS: 1. Metformin 500 mg b.i.d. 2. Glipizide 5 mg b.i.d. 3. Vitamin C. 4. Zinc. 5. Lantus 20 units daily for 1 week while on dexamethasone. 6. Dexamethasone 6 mg for 5 days with taper for 2 to 3 days. 7. Albuterol inhaler as needed. The patient was seen and examined on the day of discharge. Denies any new complaints. Shortness of breath has significantly improved. Home oxygen has been arranged. INPATIENT FIELD CROP FARMER: Infectious Disease, Dr. Vásquez. BRIEF HOSPITAL COURSE: The patient is a 29-year-old female who presented to the emergency room on 05 June 2020, with shortness of breath. She was found to have sepsis due to pneumonia with respiratory failure. She also had blood sugar of 423 on admission. Please refer to the history and physical for further details. The patient was admitted to the hospital with the above diagnosis. She was started on dexamethasone along with remdesivir after discussion with Infectious Disease. Due to uncontrolled blood sugar while on dexamethasone, she was started on Lantus insulin. She appears stable for discharge. Her inflammatory markers have significantly improved. Her ferritin is 117 at discharge from 243 on admission. Her CRP is 1.42 from 11.7 on admission. Her D-dimer is less than 0.27. She was also advised to take 81 mg aspirin for DVT prophylaxis for 2 weeks. FINAL DIAGNOSES: 1. Acute hypoxic respiratory failure. 2. Acute bilateral pneumonia secondary to COVID-19. 3. Sepsis due to COVID-19 pneumonia. 4. New onset diabetes mellitus type 2. 5. Obesity with a body mass index of 34.2. 6. Hepatosteatosis. 7. Menorrhagia. The patient was advised to follow up with [facility] as outpatient. 8. Abnormal liver function tests, probably secondary to fatty liver. The patient was extensively counseled on COVIVD-19 along with importance of self isolation. She appears stable for discharge. Job ID: [id number]
== END 2020-06-10 18:32 | disposition home or self-care (01) | DRG 871 ==
LOC: ERS 10:27 → 2SW 16:58
PROVIDERS: ADMIT Internal Medicine; ATTEND Internal Medicine
PROC: 3E04329 Introduction of Other Anti-infective into Central Vein, Percutaneous Approach (ICD-10-PCS; principal; 2020-06-05)
PROC: 8E0ZXY6 Isolation (ICD-10-PCS; 2020-06-05)
DX: A41.89 Other specified sepsis (principal); U07.1 COVID-19; J12.89 Other viral pneumonia; J96.01 Acute respiratory failure with hypoxia; E11.9 Type 2 diabetes mellitus without complications; E66.9 Obesity, unspecified; K76.0 Fatty (change of) liver, not elsewhere classified; N92.0 Excessive and frequent menstruation with regular cycle; Z68.34 Body mass index [BMI] 34.0-34.9, adult
CPT/HCPCS: 36415; 36416; 71045; 71275; 80053; 82728; 83036; 83605; 83880; 84484; 84703; 85025; 85379; 85610; 85730; 86140; 87040; 93005; 94664; 96361; 96365; 96372; 96375; 96376; J0692; J1100; J1650; J1815; Q9967; U0002

== ENCOUNTER 2021-08-04 04:55 | Emergency (ER) | payer BC, SELFPAY | END 2021-08-04 05:38 | disposition home or self-care (01) | LOC: ERS 04:55 | DX: O26.891 Other specified pregnancy related conditions, first trimester (principal); N89.8 Other specified noninflammatory disorders of vagina; Z3A.13 13 weeks gestation of pregnancy | CPT/HCPCS: 99283 ==